=== PATIENT | female | born 1980 | race Two or more races ===

== ENCOUNTER 2024-05-12 19:37 | Emergency (ER) | payer OTHER ==
[~2024-05-12] VITALS: Ht 152.4 cm; Wt 53.1 kg
[2024-05-12 21:34] LABS: PREGNANCY TEST URINE QUAL NEGATIVE (NEGATIVE)
[2024-05-12] MEDS ORDERED: IBUPROFEN 600 MG TABLET ONE (22:16)
[2024-05-12] MEDS: IBUPROFEN 600 MG TABLET PO ONE (22:20)
[2024-05-13 00:47] VITALS: BP 111/74; TEMP 98; O2SAT 99
== END 2024-05-13 00:47 | disposition home or self-care (01) ==
LOC: ER 19:49
DX: M79.662 Pain in left lower leg (principal); M25.561 Pain in right knee; V49.3XXA Car occupant (driver) (passenger) injured in unspecified nontraffic accident, initial encounter; Y93.89 Activity, other specified; Y92.488 Other paved roadways as the place of occurrence of the external cause; Y99.8 Other external cause status
CPT/HCPCS: 73552; 73564-TC; 73590-TC; 73630-TC; 84703-TC